=== PATIENT | female | born 1980 | race Two or more races ===

== ENCOUNTER 2016-06-28 09:52 | Day surgery (SDC) | payer OTHER ==
[2016-06-27 16:03] VITALS: BMI 39.1
[~2016-06-28] VITALS: Ht 167.6 cm; Wt 110.4 kg
[2016-06-28] VITALS (7 sets, daily range): BP systolic 95–143; BP diastolic 42–89; PULSE 60–77; RESP 13–19; Ht 167.6 cm; Wt 110.4 kg
[2016-06-28] MEDS ORDERED: SOD CHLORIDE 0.9% 1,000 ML IV SCH (11:30)
[2016-06-28 11:39] LABS: INR 1.03; PROTIME 13.5 Sec (12.2-14.2); PT RATIO 1.1
[2016-06-28 11:40] LABS: PARTIAL THROMBOPLASTIN TIME 30.9 Sec (25.0-35.0)
[2016-06-28 11:41] LABS: CALCIUM 9.1 mg/dl (8.4-10.2); CREATININE 0.6 mg/dl (0.44-1.00); POTASSIUM 4.1 mmol/L (3.5-5.1)
[2016-06-28 12:52] LABS: BASOPHILS % 0.3 % (0.0-2.0); CONDITION 1; EOSINOPHILS # 0.2 10^3/ul (0.0-0.5); HEMATOCRIT 36.7 % (37.0-47.0); HEMOGLOBIN 12.2 g/dl (12.0-16.0); LH ANALYZER COMMENTS 1; LYMPHOCYTES # 1.8 10^3/ul (0.8-2.9); LYMPHOCYTES % 17.8 % (15.0-51.0); MEAN CORPUSCULAR HEMOGLOBIN 24.6 pg (29.0-33.0); MEAN CORPUSCULAR HGB CONC 33.2 g/dl (32.0-37.0); MEAN CORPUSCULAR VOLUME 74.2 fl (82.0-101.0); MEAN PLATELET VOLUME 10.2 fl (7.4-10.4); MONOCYTE # 0.7 10^3/ul (0.3-0.9); MONOCYTES % 6.6 % (0.0-11.0); NEUTROPHIL # 7.3 10^3/ul (1.6-7.5); NEUTROPHILS % 73.3 % (39.0-77.0); PLATELET COUNT 244 10^3/UL (140-440); RED BLOOD COUNT 4.95 10^6/ul (4.20-5.40); RED CELL DISTRIBUTION WIDTH 15.6 % (11.5-14.5)
[2016-06-28] MEDS ORDERED: DEXAMETHASONE 4 MG/ML 1 ML INJ ONE (14:43)
[2016-06-28] MEDS ORDERED: MIDAZOLAM 1 MG/ML 2 ML INJ ONE (14:43)
[2016-06-28] MEDS ORDERED: KETOROLAC 30 MG INJ ONE (14:43)
[2016-06-28] MEDS ORDERED: ONDANSETRON 4 MG INJ ONE (14:43)
[2016-06-28] MEDS ORDERED: PROPOFOL 20 ML ONE (14:51)
[2016-06-28] MEDS ORDERED: BUPIVACAINE 0.5%/EPI (SDV) 30 ML INJ ONE (14:51)
[2016-06-28] MEDS ORDERED: LIDOCAINE 2% (MDV) 20 ML INJ ONE (14:59)
[2016-06-28] MEDS ORDERED: HYDROCODONE/APAP (5/325) TAB ONE (15:38)
[2016-06-28] MEDS ORDERED: HYDROCODONE/APAP (5/325) TAB PO ONE (16:00)
--- NOTE | 2016-06-28 16:17 | OPR ---
DATE OF OPERATION: 06/28/2016 PREOPERATIVE DIAGNOSIS: Cystic mass, left posterior thorax. POSTOPERATIVE DIAGNOSIS: Cystic mass, left posterior thorax. OPERATION PERFORMED: Resection of cystic mass, left posterior thorax. Local skin flap advancement closure. ANESTHESIA: General. ANESTHESIOLOGIST: Dr. German SURGEON: Priscila Sullivan MD MERCERIZER MACHINE OPERATOR: Dr. Hagan INDICATIONS FOR PROCEDURE: The patient is a 35-year-old female who presented with an enlarging cyst ic mass on her left posterior thorax, which has intermittently become infected. Clinically it was c onsistent with a probable epidermal inclusion cyst. She was counseled as to the risks versus benefi ts of excision. She consented and was scheduled for surgery. DESCRIPTION OF PROCEDURE: The patient was brought to the operating theater and placed under IV tayler tion. She was put in the lateral position, with the left side up. The posterior thorax was prepped and draped in the usual sterile fashion. The area associated with the cystic mass was then infiltr ated with 2% lidocaine local anesthetic circumferentially. An elliptical excision took place, inclu ding a that was overlying the cystic mass. It was carried out with a 15 blade scalpel. Using sharp dissection the entire mass, which clinically was consistent with an epidermal inclusion cyst, was removed and sent for permanent pathologic analysis. The wound was irrigated with Betadine. Mi nimal bleeding was controlled with cautery. Skin flaps were then developed inferiorly and superiorl y. They were rotated together and final skin approximation took place with 2-0 nylon sutures in robin tical mattress fashion. The patient tolerated the procedure well. Estimated blood loss was 20 mL. There were no complications and the patient was transported in stable condition to the [facility] Dictated By: PRISCILA SULLIVAN MD TL/NTS Conf#: [id number] DID#: [id number]
== END 2016-06-28 16:45 | disposition home or self-care (01) ==
LOC: SDS 09:52
PROVIDERS: ATTEND Surgery Surgical Oncology
DX: D23.5 Other benign neoplasm of skin of trunk (principal)
CPT/HCPCS: 14000; 80048; 85025; 85610; 85730; 88305; J1100; J1885; J2250; J2405; J3010